=== PATIENT | male | born 1995 | race Hispanic/Latino ===

== ENCOUNTER 2019-04-21 06:36 | Emergency (ER) | payer OTHER ==
[~2019-04-21] VITALS: Ht 175.3 cm; Wt 120.0 kg
[2019-04-21] MEDS ORDERED: ISOVUE-370 76% 100ML VIAL (Q9967) As Ordered ONE (09:55)
[2019-04-21 09:56] LABS: BASO # 0.1 10^3/uL (0.0-0.2); BASO % 0.6 % (0.0-1.0); EOS # 0.2 10^3/uL (0.0-0.50); EOS % 1.4 % (0.0-3.0); HEMATOCRIT 44.3 % (42.0-52.0); HEMOGLOBIN 15.3 g/dl (13.5-17.5); LYMPH # 2.8 10^3/uL (1.5-6.5); LYMPH % 25.9 % (24.0-44.0); MEAN CORPUSCULAR HEMOGLOBIN 30.5 pg (27.0-33.0); MEAN CORPUSCULAR HGB CONC 34.5 g/dl (32.0-36.5); MEAN CORPUSCULAR VOLUME 88.2 fl (80.0-96.0); MONO % 9.5 % (0.0-5.0); NEUTROPHILS # 6.7 10^3/uL (1.8-7.7); NEUTROPHILS % 62.2 % (36.0-66.0); PLATELET COUNT, AUTOMATED 200 10^3/uL (150-450); RED BLOOD COUNT 5.02 10^6/uL (4.30-6.10); WHITE BLOOD COUNT 10.7 10^3/uL (4.0-10.0)
--- NOTE | 2019-04-21 11:49 | REP ---
CT NECK WITH CONTRAST: HISTORY: Left ear swelling. CONTRAST: Isovue 370, 75 mL. The sinuses are clear. The osteomeatal units are patent. The middle and inferior nasal turbinates are partially paradoxical. There is cary bullosa of the right middle nasal turbinate. There is minimal deviation of the nasal septum to the left. A small spur is present arising from the left side of the nasal septum. This spur abuts the left inferior nasal turbinate. The cribriform plate, medial melgoza of the orbits and optic canals are intact. The carotid canals form a segment of the posterolateral melgoza of the sphenoid sinus. The left sphenoid sinus septum inserts into the left internal carotid. There is soft tissue thickening of the inferior aspect of the left ear. Increased soft tissue density is present in the left external auditory canal. There is partial opacification of the left middle ear cavity and mastoid air cells. There is no definite bone destruction. The right middle ear cavity and mastoid air cells are clear. An enlarged lymph node 1.2 cm in width is present in the left parotid gland. An enlarged lymph node 1.4 cm in width is present in the right internal jugular chain at the level of the oropharynx. An enlarged lymph node 1.7 cm in width is present in the left internal jugular chain a the level of the oropharynx. IMPRESSION: 1. There is no acute or chronic sinusitis. 2. Findings consistent with left external and internal otitis. There is no definite bone destruction. Electronically Signed by Pj Lechuga MD 04/21/2019 11:50 A
[2019-04-21] MEDS ORDERED: AUGM875T28 PO (12:14)
[2019-04-21 12:22] VITALS: BP 146/98
== END 2019-04-21 12:26 | disposition home or self-care (01) ==
LOC: M ED 06:36
DX: H60.92 Unspecified otitis externa, left ear (principal); H66.92 Otitis media, unspecified, left ear
CPT/HCPCS: 36415; 70487; 80047; 85025; 99284; Q9967